=== PATIENT | female | born 1970 ===

== ENCOUNTER 2020-10-17 14:56 | Outpatient (REF) | payer MEDICAID, SELFPAY ==
[2020-10-17 19:15] LABS: Bilirubin Negative (Negative); Blood Moderate (Negative); Clarity Clear (Clear); Glucose >=1000 mg/dL (Negative); Ketones Negative (Negative); Leukocyte Esterase Negative (Negative); Nitrite Negative (Negative); Urobilinogen 0.2 EU/dL (Up TO 0.2)
[2020-10-17 19:22] LABS: Bacteria Rare HPF (Negative); C & S Indicated? No; Casts Negative LPF (Negative); Crystals Negative HPF (Negative); Epithelial Cells Few HPF (Negative); Mucus Negative (Negative); WBC Negative HPF (0-5)
== END 2020-10-17 14:57 | disposition home or self-care (01) ==
LOC: NCHCN 14:56
PROVIDERS: Visit Provider Nurse Practitioner Family
DX: R30.0 Dysuria (principal)
CPT/HCPCS: 81003; 81015

== ENCOUNTER 2020-12-21 10:09 | Outpatient (REF) | payer MEDICAID, SELFPAY ==
[2020-12-21 19:16] LABS: Hemoglobin A1C 8.2 % (<5.7)
[2020-12-21 19:22] LABS: ALT 42 U/L (14-59); AST 20 U/L (15-37); Albumin 4.3 g/dL (3.4-5.0); Alkaline Phosphatase 144 U/L (46-116); Anion Gap 7.1 mmol/L (3-11); BUN 17 mg/dL (7-18); Bilirubin, Total 0.6 mg/dL (0.2-1.0); CO2 29.9 mmol/L (21.0-32.0); CREATININE 1.1 mg/dL (0.55-1.02); Calcium 10.6 mg/dL (8.5-10.1); Calculated LDL 81 mg/dL (<100); Chloride 109 mmol/L (98-107); Cholesterol 137 mg/dL (<200); Estimated GFR 52.79 (mL/min/1.73m2); Glucose 103 mg/dL (74-106); HDL Cholesterol 47 mg/dL (40-60); Potassium 4.8 mmol/L (3.5-5.1); Sodium 146 mmol/L (136-145); Total Protein 7.4 g/dL (6.4-8.2); Triglyceride 45 mg/dL (<150)
== END 2020-12-21 10:10 | disposition home or self-care (01) ==
LOC: NCHCN 10:09
PROVIDERS: Referring Provider Nurse Practitioner Family; Visit Provider Nurse Practitioner Family
DX: E11.9 Type 2 diabetes mellitus without complications (principal); I10 Essential (primary) hypertension; E78.5 Hyperlipidemia, unspecified
CPT/HCPCS: 80053; 80061; 83036

== ENCOUNTER 2021-09-25 18:32 | Outpatient (REF) | payer MEDICAID, SELFPAY ==
[2021-09-25 19:24] LABS: ALT 60 U/L (14-59); AST 33 U/L (15-37); Albumin 3.9 g/dL (3.4-5.0); Alkaline Phosphatase 116 U/L (46-116); Anion Gap 6.1 mmol/L (3-11); BUN 20 mg/dL (7-18); Bilirubin, Total 0.4 mg/dL (0.2-1.0); CO2 28.9 mmol/L (21.0-32.0); CREATININE 1.3 mg/dL (0.55-1.02); Calcium 10.2 mg/dL (8.5-10.1); Chloride 103 mmol/L (98-107); Estimated GFR 43.54 (mL/min/1.73m2); Glucose 165 mg/dL (74-106); Potassium 4.4 mmol/L (3.5-5.1); Sodium 138 mmol/L (136-145); Total Protein 7.3 g/dL (6.4-8.2)
== END 2021-09-25 18:33 | disposition home or self-care (01) ==
LOC: NCHCN 18:32
PROVIDERS: Visit Provider Nurse Practitioner Family
DX: E11.9 Type 2 diabetes mellitus without complications (principal)
CPT/HCPCS: 80053